=== PATIENT | male | born 1945 | race Caucasian/White ===

== ENCOUNTER 2018-12-02 18:51 | Emergency (ER) | payer OTHER ==
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
[2018-12-02 23:22] VITALS: BP 135/80
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
== END 2018-12-02 22:20 | disposition home or self-care (01) ==
LOC: ED 18:51
DX: S09.90XA Unspecified injury of head, initial encounter (principal); V49.40XA Driver injured in collision with unspecified motor vehicles in traffic accident, initial encounter
CPT/HCPCS: 70450; 93005; 99283